=== PATIENT | female | born 1965 | race Caucasian/White ===

== ENCOUNTER 2019-04-24 08:25 | Day surgery (SDC) | payer BC ==
[2019-04-24] MEDS ORDERED: PROPOFOL 10 MG/ML VIAL IV ONE (08:26)
[2019-04-24] MEDS ORDERED: LIDOCAINE 2% MDV (20MG/ML) 20ML VIAL IV ONE (08:26)
--- NOTE | 2019-04-27 07:30 | Operative Note ---
SURGEON: Ciara Serrano MD OPERATION: COLONOSCOPY. INDICATIONS: This is a 54-year-old female with history of "average risk for colorectal cancer" who was sent for outpatient open access colonoscopy but she has had history of constipation for many years. POSTOPERATIVE DIAGNOSES: Large amount of stool debris in the sigmoid colon. Unable to advance the colonoscope beyond the solid stool. ANESTHESIA: Sedation is per Anesthesia. Pulse oximetry was monitored throughout the procedure to maintain O2 saturation of 90% or greater. Supplemental oxygen was administered via nasal cannula. Cardiac and vital signs were monitored throughout the duration of the procedure, and they were stable. The procedure of colonoscopy and risks and alternatives of the procedure, including the risk of bleeding and perforation, among others, were explained to the patient who voiced understanding and agreed to have the procedure done. Physical examination was performed, and the patient was found stable for sedation. PROCEDURE: The patient was placed in the left lateral position. Sedation was initiated. A digital rectal exam was performed and showed some mild external hemorrhoids with no palpable rectal masses. An Olympus PCF-180AL colonoscope was then inserted into the rectum and advanced to the sigmoid colon without difficulty. The colonic mucosa was carefully examined upon introduction of the colonoscope. There was large amount of stool debris in the rectum as well as the sigmoid colon, and the colonoscope was then withdrawn and the procedure was terminated. The patient tolerated the procedure well without any immediate complications. The patient remained with stable vital signs and was transferred to the recovery room. RECOMMENDATIONS: The patient is to have a 2-day bowel preparation and reschedule the colonoscopy. Thank you for allowing me to participate in the care of your patient. DAMIEN
== END 2019-04-24 10:00 | disposition home or self-care (01) ==
LOC: HOP 08:25
PROVIDERS: ATTEND Internal Medicine Gastroenterology
DX: Z12.11 Encounter for screening for malignant neoplasm of colon (principal); Z53.09 Procedure and treatment not carried out because of other contraindication
CPT/HCPCS: 00812; G0121

== ENCOUNTER 2019-06-05 08:39 | Day surgery (SDC) | payer BC ==
[2019-06-05] MEDS ORDERED: PROPOFOL 10 MG/ML VIAL IV ONE (08:40)
[2019-06-05] MEDS ORDERED: LIDOCAINE 2% MDV (20MG/ML) 20ML VIAL IV ONE (08:40)
--- NOTE | 2019-06-09 06:02 | Operative Note ---
DATE OF SERVICE: 06/05/2019. DATE OF SURGERY: 06/05/2019 REQUESTING PROVIDER: Damaris Jorgensen NP. SURGEON: Ciara Serrano MD. POSTOPERATIVE DIAGNOSES: 1. Normal colon with no neoplastic or ulcerative lesions. 2. Fair bowel preparation. OPERATION: COLONOSCOPY. INDICATION FOR PROCEDURE: This is a 54-year-old female with history of suboptimal bowel preparation about a month ago, who presented for screening colonoscopy. SEDATION: Sedation is per Anesthesia. Pulse oximetry was monitored throughout the duration of the procedure to maintain O2 saturation of 90% or greater. Supplemental oxygen was administered via nasal cannula. Cardiac and vital signs were monitored throughout the duration of the procedure and they were stable. PROCEDURE: The procedure of colonoscopy, risks and alternatives to the procedure, including the risks of bleeding and perforation, among others, were explained to the patient. She voiced understanding and agrees to have the procedure done. Physical examination was performed and the patient was found stable for sedation. The patient was then placed in the left lateral position and sedation was initiated. Digital rectal exam was performed and showed small external hemorrhoids with no palpable rectal masses. A lubricated Olympus PCF1 80AL colonoscope was then inserted into the rectum and under direct visualization was advanced to the cecum without difficulty. The ileocecal valve and appendiceal orifice were identified and photographed. The colonic mucosa was carefully examined upon introduction of the colonoscope. There were no lesions noted. The bowel preparation was fair. The colonoscope was then withdrawn while carefully examining the colonic mucosal surfaces. No lesions were noted. In the rectum, retroflexion maneuver was performed and Grade 1 internal hemorrhoids were noted. The colonoscope was then withdrawn and the procedures were terminated. The patient tolerated the procedures well without immediate complications. She remained in stable vital signs and was transferred to the recovery room. PLAN AND RECOMMENDATIONS: 1. She will be on a high fiber diet. 2. She is to have a repeat colonoscopy in 5 years, given suboptimal bowel preparation. Thank you for allowing me to participate in the care of your patient. DAMIEN
== END 2019-06-05 10:32 | disposition home or self-care (01) ==
LOC: HOP 08:39
PROVIDERS: ATTEND Internal Medicine Gastroenterology
DX: Z12.11 Encounter for screening for malignant neoplasm of colon (principal); Z91.19 Patient's noncompliance with other medical treatment and regimen; K59.00 Constipation, unspecified; R56.9 Unspecified convulsions